=== PATIENT | male | born 1980 | race Caucasian/White ===

== ENCOUNTER 2021-04-21 08:55 | Day surgery (SDC) | payer BC, OTHER ==
[~2021-04-21] VITALS: Ht 185.4 cm; Wt 125.0 kg
[~2021-04-21 08:55] MED LIST: CENTRAL-VITE H1 EACH PO; CHANTIX1 MG PO; CRUTCH1 EACH; IBUPROFEN600 MG PO; NORCO 5-325 TA1 EACH PO; OMEPRAZOLE20 M1 PO; VENTOLIN HFA18 GM INH
[2021-04-21] MEDS ORDERED: MELATONIN10 MG PO (09:10)
--- NOTE | 2021-04-21 14:04 | NUR ---
04/21/21 1404 Chyna Rivero 1309 PT ARRIVED IN PACU NON RESPONSIVE TO NOXIOUS STIMULI WITH OPA IN PLACE. 1317 PT REACTIVE. OPA REMOVED. 1320 ICE TO L GROIN AND UMBILICUS. 1330 PT AWAKENS TO VERBAL STIMULI AND FALLS BACK TO SLEEP. 1345 NO C/O'S. 1350 TO DS. REPORT GIVEN TO RN. AT BEDSIDE.
[2021-04-21] MEDS ORDERED: OXYCODONE HCL10 MG PO (14:08)
--- NOTE | 2021-04-21 14:17 | NUR ---
1400: PATIENT BACK IN DAY SURGERY ROOM FROM PACU. DENIES PAIN. DENIES NAUSEA. VS CHECKED. UMBILICAL DRESSING CDI. LEFT GROIN DRESSING CDI. IV SITE WNL. WATER PLACED AT BEDSIDE. SCDs ON. AT BEDSIDE. CALL LIGHT WITHIN REACH.
--- NOTE | 2021-04-21 14:56 | NUR ---
VS CHECKED. DENIES PAIN. LUNCH ORDERED. AT BEDSIDE. CALL LIGHT WITHIN REACH.
--- NOTE | 2021-04-21 15:35 | NUR ---
PATIENT TOLERATED LUNCH. PATIENT ASSISTED OOB AND TO WALK AROUND ROOM. GAIT STEADY. PATIENT NOW GETTING DRESSED WITH HELP FROM .
--- NOTE | 2021-04-21 15:50 | NUR ---
1545: PATIENT WALKED TO BATHROOM INDEPENDENTLY. GAIT STEADY. VOID WITHOUT DIFFICULTY. GAIT STEADY BACK TO ROOM. DISCHARGE INSTRUCTIONS GIVEN TO PATIENT AND . IV DC'D WNL. TIP INTACT. DRESSING APPLIED. 1550: PATIENT DISCHARGED TO HOME WITH VIA WHEELCHAIR.
--- NOTE | 2021-04-22 07:25 | OR ---
[facility] [address], [place] [address] Signed DATE OF OPERATION: 04/21/2021 SURGEON: Luisa Alaniz MD PREOPERATIVE DIAGNOSES: 1. Incarcerated umbilical hernia (10 mm). 2. Left inguinal hernia. POSTOPERATIVE DIAGNOSES: 1. Incarcerated umbilical hernia (10 mm). 2. Reducible left indirect inguinal hernia. PROCEDURES: 1. Primary umbilical herniorrhaphy with intraabdominal Ventralex mesh (4.3 cm). 2. Left Brayden onlay mesh inguinal herniorrhaphy. ESTIMATED BLOOD LOSS: None. INDICATIONS: Sanket is a 40-year-old gentleman at 6 feet tall, 276 pounds and a body mass index of 37. He happens to work in the [employer] department for our [employer] here in [facility]. He noticed pain and swelling in January of this year at the umbilicus. He said he was helping some friends move a very large tree stump. He also notices some sense of swelling in his left groin. He had a right inguinal hernia repaired in 1998 in [place], [place]. He recalls they used mesh. He decided to go [facility]. He was then referred to his primary care provider. He was having fairly intense pain, so a CT scan of the abdomen and pelvis had been ordered. That was reviewed by myself and he clearly has the incarcerated umbilical hernia containing fat. He also has a left inguinal hernia containing fat. He said he has been off work and was referred to my office with respect to the above. In the office, I gave him our brochure on hernias. We went through it page by page. He understands the nature of both an umbilical and an inguinal hernia. He understands the difference between a primary suture repair and a mesh repair. He is well aware of the expected intraop and postop course. These patients often need anywhere 4-8 weeks off work depending on their lifting restrictions and needs. There is risk to the surgery including, but not limited to bleeding, infection, scarring, change in contour of the skin, damage to bowel, infection of mesh requiring removal of recurrent hernias and chronic pain as well as damage to the nerves in the groin. He had expressed understanding and wished to proceed. Electronically Signed By: LUISA ALANIZ MD 04/22/21 0725 PATIENT NAME: SANKET CACERES OPERATIVE REPORT DATE OF : 82 REPORT #: [id number] PHYSICIAN: LUISA ALANIZ MD PCP: AMARILIS ELLER REPORT IS CONFIDENTIAL AND NOT TO BE RELEASED WITHOUT AUTHORIZATION [facility] [address], [place] [address] Signed DESCRIPTION OF PROCEDURE: I met with Sanket and his in our preop area. We both agreed on the umbilicus and the left groin. They were marked appropriately. After this, Sanket was taken into the operating room and placed in the supine position under general endotracheal tube anesthesia. He was given preoperative antibiotics along with subcutaneous heparin. SCDs were utilized. He was then prepped and draped in the usual sterile fashion. He had already shaved his left groin. We extended that across the right groin, so we could see his previous scar. We approached the umbilicus first. Standard infraumbilical transverse incision was made and carried down and around the umbilicus bluntly and with the cautery. The umbilicus was from the fascial defect with the help of the cautery. The hernia sac had been passed off the field. The fascial defect was about 10 mm in diameter. We therefore chose our 4.3 cm round Ventralex mesh and we placed that in the abdomen, brought it up, flushed against the posterior abdominal wall. The fascial defect was closed transversely with a running #1 Prolene suture. Several passes of the suture went through the tab on the mesh to help hold it in place. The tab was cut flush with the abdominal wall and discarded. We then injected local anesthetic into his abdominal wall and subcutaneous tissues. The wound was irrigated and suctioned out until clear. The umbilical skin was held back down to the midline fascia with an interrupted 2-0 PDS suture. The dermis was reapproximated with interrupted 3-0 subcuticular Monocryl sutures. The skin edges were reapproximated with a running 5-0 fast absorbing plain gut suture. After this, we decided to approach the left groin. We measured out mirror image incision in the left groin based on his previous right surgical scar. This was developed with a 15 blade knife down to the tissue bluntly and with the cautery. The external oblique fascia was opened along its length and developed medially and laterally. He had quite a bit of fat in the subcutaneous tissues and even over the muscle. They made it a bit difficult to visualize the iliohypogastric and ilioinguinal nerves. We elevated the cord structures at the level of pubic tubercle with the help of a [place] drain. He did have some weakness to the direct space, but as we dissected out the anteromedial side of the cord structures at the level of the deep ring, we found his hernia sac. It was actually moderate in size. We went nearly to the pubic tubercle. It was dissected free with the help of the DeBakey forceps. Hernia sac was opened and then suture ligated at its neck with 2-0 PDS pursestring suture. The hernia sac was amputated and passed off the field. We then imbricated the floor of the inguinal canal with a running 2-0 PDS suture and also help to close down the deep ring with a couple of stitches. After this, a piece of flat Prolene mesh was cut to fit his groin and a slit was made in the mesh to accommodate the cord structures at the level of deep ring. The mesh was held in place medially and laterally with a running #1 Prolene suture. After this, local anesthetic was copiously injected in the wound. The wound was irrigated and suctioned out until clear. We closed the external oblique fascia over the repair with a running 2-0 PDS suture. Bebeto's fascia was reapproximated with a Electronically Signed By: LUISA ALANIZ MD 04/22/21 0725 PATIENT NAME: SANKET CACERES OPERATIVE REPORT DATE OF : 82 REPORT #: [id number] PHYSICIAN: LUISA ALANIZ MD PCP: AMARILIS ELLER REPORT IS CONFIDENTIAL AND NOT TO BE RELEASED WITHOUT AUTHORIZATION [facility] [address] [place] [id number] Signed running 3-0 Monocryl suture. The dermis was reapproximated with interrupted 3-0 subcuticular Monocryl sutures. The skin edges were reapproximated with a running 5-0 fast absorbing plain gut suture. Dry gauze and tape were then applied to both incisions. Sanket was awakened from his anesthesia, extubated in the OR, and taken to the recovery room in stable condition. Luisa Alaniz MD ALB/MODL /[id number] cc: MD Amarilis Teixeira PA Copies: LUISA ALANIZ MD, LINDA PA ~ Electronically Signed By: LUISA ALANIZ MD 04/22/21 0725 PATIENT NAME: SANKET CACERES OPERATIVE REPORT DATE OF : 82 REPORT #: [id number] PHYSICIAN: LUISA ALANIZ MD PCP: AMARILIS ELLER REPORT IS CONFIDENTIAL AND NOT TO BE RELEASED WITHOUT AUTHORIZATION
== END 2021-04-21 15:50 | disposition home or self-care (01) ==
LOC: DS 08:55
PROVIDERS: ATTEND Colon & Rectal Surgery
PROC: 0WUF0JZ Supplement Abdominal Wall with Synthetic Substitute, Open Approach (ICD-10-PCS; principal; 2021-04-21 10:45)
PROC: 0YU60JZ Supplement Left Inguinal Region with Synthetic Substitute, Open Approach (ICD-10-PCS; 2021-04-21 10:45)
DX: K42.0 Umbilical hernia with obstruction, without gangrene (principal); K40.90 Unilateral inguinal hernia, without obstruction or gangrene, not specified as recurrent; K21.9 Gastro-esophageal reflux disease without esophagitis; I10 Essential (primary) hypertension; J44.9 Chronic obstructive pulmonary disease, unspecified; F17.210 Nicotine dependence, cigarettes, uncomplicated
CPT/HCPCS: 00750; C1781; J0690; J1100; J1644; J1885; J2001; J2250; J2405; J2704; J3010; J7121

== ENCOUNTER 2021-04-24 13:29 | Emergency (ER) | payer BC, OTHER ==
[~2021-04-24] VITALS: Ht 185.4 cm; Wt 124.7 kg
[~2021-04-24 13:29] MED LIST changes: +MELATONIN10 MG PO; +OXYCODONE HCL10 MG PO
== END 2021-04-24 18:36 | disposition home or self-care (01) ==
LOC: ED 13:29
DX: N99.840 Postprocedural hematoma of a genitourinary system organ or structure following a genitourinary system procedure (principal); G89.18 Other acute postprocedural pain; Z87.891 Personal history of nicotine dependence; Z79.899 Other long term (current) drug therapy
CPT/HCPCS: 76870; 99283-25